=== PATIENT | male | born 1990 | race Caucasian/White ===

== ENCOUNTER → 2016-09-09 | Outpatient (CLI) | payer BC ==
[~2016-09-09] MED LIST: HYDR25CA PO; RTL20 PO
[2016-09-09 12:27] LABS: BASO % 0.7 %; BASO ABS # 0.04 K/uL (0-0.2); COMPLETE YES; EOS % 1.9 %; HEMATOCRIT 38.9 % (42-52); IG% 0.2 %; LYMPH % 42.2 %; LYMPH ABS # 2.48 K/uL (1.2-3.4); MEAN CELL VOLUME 89.4 fL (80-100); MEAN CORPUSCULAR HEMOGLOBIN 28.3 pg (25-34); MEAN CORPUSCULAR HGB CONC 31.6 g/dl (32-36); MEAN PLATELET VOLUME 11.2 fL (7.4-10.4); MONO % 10.4 %; NEUT % 44.6 %; PLATELET COUNT 200 K/uL (130-400); RED BLOOD COUNT 4.35 M/uL (4.7-6.1); WHITE BLOOD COUNT 5.88 K/uL (4.8-10.8)
[2016-09-09 12:47] LABS: ALT/SGPT 26 U/L (12-78); BLOOD UREA NITROGEN 10 mg/dl (7-18); BUN/CREATININE RATIO 11.6 (10-20); CALCIUM 8.6 mg/dl (8.5-10.1); CARBON DIOXIDE 25 mmol/L (21-32); CHLORIDE 110 mmol/L (98-107); CREATININE 0.83 mg/dl (0.60-1.40); GLUCOSE 113 mg/dl (70-99); POTASSIUM 3.6 mmol/L (3.5-5.1); SODIUM 142 mmol/L (136-145)
[2016-09-09 12:56] LABS: ALB/GLOB RATIO 1.3 (0.9-2); ALKALINE PHOSPHATASE 56 U/L (45-117); AST/SGOT 23 U/L (15-37); FERRITIN 42.4 ng/ml (8.0-388.0); THYROID STIMULATING HORMONE 0.898 uIu/ml (0.300-4.500)
--- NOTE | 2016-09-14 10:12 | CODING QUERY MEDICAL NECESSITY ---
SUPPORTING DIAGNOSIS NEEDED A supporting diagnosis is required for the test/procedure performed on this patient in order for us to be reimbursed by the patient's insurance. Please provide a supporting diagnosis for the following test/procedure listed below next to the test name along with your signature. *If there is no additional diagnosis for this patient that would support the following test/procedure please document that below next to the test/procedure. Test(s)/Procedure(s) that require a supporting diagnosis: * VITAMIN D, 25- HYDROXY DIAGNOSIS: * VITAMIN B12 DIAGNOSIS: Provider Signature: Date: Thank you Guillermina Acosta [email or web address] Information Management Once completed, please kindly fax back to [phone] For questions please call [phone]
== END | disposition home or self-care (01) ==
LOC: C.LAB 11:42
DX: R53.83 Other fatigue (principal); E55.9 Vitamin D deficiency, unspecified; E53.8 Deficiency of other specified B group vitamins

== ENCOUNTER → 2016-09-28 | Outpatient (CLI) | payer BC ==
[2016-09-28 12:08] LABS: BASO % 0.2 %; BASO ABS # 0.01 K/uL (0-0.2); COMPLETE YES; HEMATOCRIT 41.2 % (42-52); IG% 0.2 %; LYMPH ABS # 1.21 K/uL (1.2-3.4); MEAN CELL VOLUME 90.7 fL (80-100); MEAN CORPUSCULAR HEMOGLOBIN 30.6 pg (25-34); MEAN CORPUSCULAR HGB CONC 33.7 g/dl (32-36); MEAN PLATELET VOLUME 11.6 fL (7.4-10.4); MONO % 11.3 %; NEUT % 61.3 %; PLATELET COUNT 210 K/uL (130-400); RED BLOOD COUNT 4.54 M/uL (4.7-6.1); WHITE BLOOD COUNT 5.05 K/uL (4.8-10.8)
[2016-10-05 18:36] LABS: ENDOMYSIAL IGA AB TC 15064 Negative (Negative); GLIADIN DEAMIDATED IgA AB 9 UNITS (<20); GLIADIN DEAMIDATED IgG AB 13 UNITS (<20); HAPTOGLOBIN TC 45427W 56 MG/DL (43-212)
== END | disposition home or self-care (01) ==
LOC: C.LAB 10:27
DX: D64.9 Anemia, unspecified (principal)

== ENCOUNTER 2017-10-07 11:27 | Emergency (ER) | payer BC ==
[~2017-10-07] VITALS: Ht 185.4 cm; Wt 74.8 kg
[2017-10-07 11:36] VITALS: TEMP 36.6; Ht 185.4 cm; Wt 74.8 kg
[2017-10-07 12:28] VITALS: BP 120/74; PULSE 74; O2SAT 99
--- NOTE | 2017-10-08 06:58 | EMERGENCY ROOM VISIT NOTE ---
ED Visit Note First contact with patient: 11:43 Chief Complaint: I cut my left index finger. History of Present Illness: Mr. Jacobson is a 26-year-old white male who ambulates into the ED complaining of a fingertip laceration to the left index finger. Patient reports just prior to coming to the hospital he was using a razor blade and accidentally cut the tip of his left index finger. He reports he was able to control bleeding but did not wash the wound. He denies any associated symptoms with his wound including pain in the area of his laceration and numbness and tingling in the index finger. Review of Systems: As noted above in history of present illness. Past Medical History: Patient denies. Current Medications: Patient denies. Allergies to Medications: Anticoagulates and ibuprofen. Social History: Patient is currently employed; he feels safe in his home environment; he denies tobacco use. Tetanus Immunization Status: Patient reports up-to-date. Physical Examination: Vital Signs: Date Time Temp Pulse Resp B/P (MAP) Pulse Ox O2 Delivery O2 Flow Rate FiO2 10/07/17 12:28 74 16 120/74 99 10/07/17 11:36 36.6 72 18 121/72 97 Room Air GENERAL: 26-year-old male in no acute distress, nontoxic-appearing, afebrile and hemodynamically stable. NEUROLOGICAL: Awake, alert and oriented to person, place and time. Answering questions appropriately and following commands. SKIN: Warm, dry and pink. Left Index Finger: 0.4 mm full-thickness laceration to the tip of the finger. Minimally active bleeding. LEFT INDEX FINGER: No gross bony deformity. Soft tissue as noted above. Full range of motion in flexion and extension of the MCP, PIP and DIP joint. Throughout the finger the skin was warm and pink and capillary refill was brisk. He was able to distinguish light sensations to all dermatomes of the finger. ED Course: Patient is assessed as noted above. Patient's medication list was reviewed. Patient's wound was cleansed with antibacterial soap and water and Steri-Strips were used to approximate the laceration. No complications and the patient tolerated the procedure well. Patient was educated about tonight's findings and instructed on his treatment plan; he verbalizes understanding and agreement with this plan. Clinical Impression: Laceration of the left index finger. Disposition: Patient discharged home in stable condition; prior to departure he was reassessed and subjectively reported rated his discomfort 2/10. Plan: Comfort measures, wound care and signs of infection were discussed with the patient. Patient was encouraged to follow-up with PCP or return to the ED for any signs of infection or any new/concerning symptoms.
== END 2017-10-07 12:29 | disposition home or self-care (01) ==
LOC: C.EDB 11:28 → C.EDD 12:29
DX: S61.211A Laceration without foreign body of left index finger without damage to nail, initial encounter (principal); W26.8XXA Contact with other sharp object(s), not elsewhere classified, initial encounter